=== PATIENT | female | born 1985 | race African-American/Black ===

== ENCOUNTER 2019-04-14 23:25 | Emergency (ER) | payer SELFPAY ==
[~2019-04-14] VITALS: Ht 172.7 cm; Wt 102.1 kg
[~2019-04-14 23:25] MED LIST: NITROFURANTOIN100 M2 ORAL; ONDANSETRON ODT4 MG ORAL
[2019-04-14 23:56] LABS: APPEARANCE,URINE CLEAR; BILIRUBIN, URINE NEGATIVE (NEGATIVE); COLOR,URINE PALE YELLOW; GLUCOSE, URINE (UA) NEGATIVE (NEGATIVE); KETONES,URINE NEGATIVE (NEGATIVE); LEUKOCYTE ESTERASE ,URINE NEGATIVE (NEGATIVE); NITRITE,URINE NEGATIVE (NEGATIVE); PH,URINE 8 (4.5-8.0); PROTEIN,URINE NEGATIVE (NEGATIVE); UROBILINOGEN,URINE NORMAL MG/DL (0.0-1.0)
[2019-04-14] MEDS: HYDROcodone/Acetamin 5/325 tab ORAL ONE (23:58)
[2019-04-14 23:59] VITALS: BP 102/74
--- NOTE | 2019-04-15 00:30 | Emergency Room Report ---
History of Present Illness General Chief Complaint: Pain Source: Patient Present Illness HPI Is a 33-year-old female with no past medical history. She presents with chief complaint of right flank pain. Onset for the last for 5 days. She went to urgent care couple days ago and was placed on Cipro. Not getting better. Pain is to the right lower back. Nothing made it better. Nothing made it worse. Pain is 8 out of 10. No radiation. No hematuria. Allergies: Coded Allergies: No Known Allergies (Unverified , 04/08/13) Patient History Past Medical History: see triage record, old chart reviewed Past Surgical History: none Pertinent Family History: none Social History: Denies: smoking Last Menstrual Period: IUD Now: No Immunizations: other Reviewed Nursing Documentation: PMH: Agreed; PSxH: Agreed Nursing Documentation-PM Past Medical History: No Stated History Review of Systems Eye: Denies: eye pain, blurred vision ENT: Denies: ear pain, nose congestion, throat swelling Respiratory: Denies: cough, shortness of breath Cardiovascular: Denies: chest pain, palpitations Gastrointestinal: Denies: abdominal pain, diarrhea, nausea, vomiting Musculoskeletal: Reports: back pain; Denies: joint pain Skin: Denies: rash Neurological: Denies: headache, numbness Endocrine: Denies: increased thirst, increased urine Hematologic/Lymphatic: Denies: easy bruising All Other Systems: negative except mentioned in HPI Physical Exam Vital Signs Date Time Temp Pulse Resp B/P (MAP) Pulse Ox O2 Delivery O2 Flow Rate FiO2 04/14/19 23:29 99.1 91 18 102/74 (83) 98 Room Air Vitals normal Sp02 EP Interpretation: reviewed, normal General Appearance: well appearing, no apparent distress, alert Head: normocephalic, atraumatic Eyes: bilateral eye PERRL, bilateral eye EOMI ENT: hearing grossly normal, normal pharynx Neck: full range of motion, supple, no meningismus Respiratory: chest non-tender, lungs clear, normal breath sounds Cardiovascular #1: regular rate, rhythm, no murmur Gastrointestinal: normal bowel sounds, non tender, no mass, no organomegaly, no bruit, non-distended Musculoskeletal: back normal, gait/station normal, normal range of motion Psychiatric: mood/affect normal Medical Decision Making Diagnostic Impression: Primary Impression: Back pain Qualified Codes: M54.5 - Low back pain ER Course Patient with lower back pain. No evidence of pyelonephritis or ureteral stone. She does have thickened bladder wall. She is finishing up a course of Cipro for UTI. I recommend outpatient follow-up for recheck. If continue with symptom, she may need referral to see urologist for biopsy to rule out bladder cancer. Patient pain well controlled now. Will discharge home. CT/MRI/US Diagnostic Results CT/MRI/US Diagnostic Results : Imaging Test Ordered: CT abdomen and pelvis Impression Read by radiologist. Thickened bladder wall. IUD. No kidney stone. Last Vital Signs Date Time Temp Pulse Resp B/P (MAP) Pulse Ox O2 Delivery O2 Flow Rate FiO2 04/14/19 23:59 99.1 18 102/74 98 Room Air 04/14/19 23:29 91 Status: improved Disposition: HOME, SELF-CARE Condition: Stable Scripts Ibuprofen* (MOTRIN*) 600 Mg Tablet 600 MG ORAL THREE TIMES A DAY, #30 TAB 0 Refills Prov: Buddy Pathak MD 04/15/19 Hydrocodone/Acetaminophen 5-325* (HYDROCODONE/ACETAMINOPHEN 5-325*) 1 Each Tablet 1 TAB ORAL Q6H PRN for For Pain, #10 TAB 0 Refills Prov: Buddy Pathak MD 04/15/19 Additional Instructions: Follow-up with your doctor in 7 days. Return if symptoms worsen. Buddy Pathak MD Apr 15, 2019 00:30
[2019-04-15] MEDS ORDERED: IBUPROFEN600 MG ORAL (01:05)
[2019-04-15] MEDS ORDERED: HYDROCODON-ACE1 EA15 ORAL (01:05)
[2019-04-15 01:16] VITALS: BP 102/74
--- NOTE | 2019-04-15 09:47 | Diagnostic Imaging Report ---
Indication: Abdominal pain for 3 days Technique: Spiral acquisitions obtained through the abdomen and pelvis. No oral contrast utilized, per emergency room physician request No IV contrast utilized, per referring physician request.. Multiplanar reconstructions were generated. Total dose length product 1009 mGycm. CTDIvol(s) 19 mGy. Dose reduction achieved using automated exposure control Comparison: None Findings: The appendix is normal. Prominent feces are seen in the distal sigmoid and rectum. No evidence of diverticulosis or diverticulitis. No small bowel distention. There is a tiny fat-containing umbilical hernia. Distal esophagus, stomach, duodenum are unremarkable. No free or loculated intraperitoneal gas or fluid is evident. Lack of IV contrast limits assessment of solid organs. The liver, gallbladder, bile ducts, pancreas, spleen, adrenals, kidneys are grossly unremarkable. No retroperitoneal or mesenteric mass or adenopathy. No pelvic mass or adenopathy. There is apparent bladder wall thickening, possibly an artifact of under distention. There is an intrauterine device in place. Uterus and ovaries are otherwise unremarkable. The lung bases are clear. The bones are unremarkable. Impression: Prominent distal colonic feces, could indicate constipation. Correlate with clinical findings Bladder wall thickening, possibly an artifact of under distention but the possibility of cystitis should be considered. Correlate with clinical and laboratory findings Intrauterine device noted Incidental finding tiny fat-containing umbilical hernia This agrees with the preliminary interpretation provided overnight by [facility]. The CT scanner at [facility] is accredited by the [employer] and the scans are performed using protocols designed to limit radiation exposure to as low as reasonably achievable to attain images of sufficient resolution adequate for diagnostic evaluation.
== END 2019-04-15 01:17 | disposition home or self-care (01) ==
LOC: EMR 04-15 00:45
DX: M54.5 Low back pain (principal); K42.9 Umbilical hernia without obstruction or gangrene; Z97.5 Presence of (intrauterine) contraceptive device
CPT/HCPCS: 74176; 81003; 81025; 99284

== ENCOUNTER → 2019-07-07 | Emergency (ER) | payer MEDICAID, OTHER ==
[~2019-07-07] VITALS: Ht 172.7 cm; Wt 113.4 kg
[~2019-07-07] MED LIST changes: +HYDROCODON-ACE1 EA15 ORAL; +IBUPROFEN600 MG ORAL; +NKM
--- NOTE | 2019-07-07 20:10 | NUR ---
ED Nurse Note: Recieved pt from home, here with c/o feeling like something crawling in right ear, denies fevers, cough, or any toehr complaints or discomforts.
--- NOTE | 2019-07-07 20:24 | Emergency Room Report ---
History of Present Illness General Chief Complaint: Earache Source: Patient Present Illness HPI 33-year-old female percents with foreign body sensation in right ear, prior to arrival, patient has been picking at something, patient has no foreign body sensation at the moment, no aggravating or relieving factors severity is mild, symptoms have since resolved patient want to make sure there is nothing in the ear. Patient presents for evaluation Allergies: Coded Allergies: No Known Allergies (Unverified , 04/08/13) Patient History Past Medical History: see triage record Last Menstrual Period: 06/19/19 Now: No Reviewed Nursing Documentation: PMH: Agreed; PSxH: Agreed Nursing Documentation-PMH Past Medical History: No Stated History Review of Systems All Other Systems: negative except mentioned in HPI Physical Exam Vital Signs Date Time Temp Pulse Resp B/P (MAP) Pulse Ox O2 Delivery O2 Flow Rate FiO2 07/07/19 20:02 98.1 92 16 103/74 (84) 100 Room Air General Appearance: well appearing, no apparent distress Head: normocephalic, atraumatic Eyes: bilateral eye PERRL, bilateral eye EOMI ENT: hearing grossly normal, normal voice, TMs + canals normal, moist mucus membranes Neck: full range of motion, supple Respiratory: no respiratory distress, speaking full sentences Neurologic: alert, normal gait Psychiatric: mood/affect normal Skin: no rash Medical Decision Making Diagnostic Impression: Primary Impression: Foreign body sensation in right ear canal ER Course 33 year-old female presents with foreign body sensation, no evidence of anything in the right ear TMs clear, canals normal Dispo home w/ return precautions Last Vital Signs Date Time Temp Pulse Resp B/P (MAP) Pulse Ox O2 Delivery O2 Flow Rate FiO2 07/07/19 20:02 98.1 92 16 103/74 (84) 100 Room Air Disposition: HOME, SELF-CARE Condition: Stable [facility] Patient Instructions: Earache Additional Instructions: The patient was provided with discharge instructions, notified to follow-up with a primary care doctor and or specialist in the next 24-48 hours, and to return to the ED if they have worsening of their symptoms. Please note that this report is being documented using [employer] technology. This can lead to erroneous entry secondary to incorrect interpretation by the dictating instrument. PLEASE UTILIZE DEBROX TO CLEAN OUT RIGHT EAR IF NEEDED Hilario Mujica MD Jul 07, 2019 20:24
[2019-07-07 21:00] VITALS: BP 103/74
--- NOTE | 2019-07-07 21:00 | NUR ---
ER DISCHARGE NOTE: Patient is cleared to be discharged per ERMD, pt is aox4, on room air, with stable vital signs. pt was given dc and prescription instructions, pt was able to verbalize understanding, pt id band removed without complications. pt is able to ambulate with steady gait. pt took all belongings.
== END | disposition home or self-care (01) ==
LOC: EMR 22:50
DX: H92.01 Otalgia, right ear (principal)
CPT/HCPCS: 99282

== ENCOUNTER 2020-03-23 22:36 | Emergency (ER) | payer MEDICAID, OTHER ==
[~2020-03-23] VITALS: Ht 170.2 cm; Wt 105.7 kg
[2020-03-23 22:47] VITALS: BP 112/68
--- NOTE | 2020-03-23 22:47 | NUR ---
ED Nurse Note: pt presents to ED c/o R eye px X 3 days, states she woke up with a swollen R eye. pt reports clear drainage from eye, it is red and painful
[2020-03-23] MEDS ORDERED: ERYTHROMYCIN3.5 GM RIGHT EYE (22:54)
[2020-03-23] MEDS ORDERED: AUGMENTIN 875-1 EAC1 ORAL (22:54)
--- NOTE | 2020-03-23 22:55 | Emergency Room Report ---
History of Present Illness General Chief Complaint: Eye Problems Source: Patient Present Illness HPI This a 34-year-old female with no past medical history. She will presents with chief complaint of right eyelid swelling. Onset for 3 days. Initially she woke up by her upper right eyelid were all swollen. Now there is a mass and localized swelling and mild redness. No fever chills. No trauma. Does not wear contacts. Denies any other complaint. No eyeball pain. Allergies: Coded Allergies: No Known Allergies (Unverified , 04/08/13) COVID-19 Screening Contact w/high risk pt: No Recent Travel to affected area: No Experienced COVID-19 symptoms?: No COVID-19 Testing performed BLOOD DONOR RECRUITER: No Patient History Past Medical History: see triage record, old chart reviewed Past Surgical History: none Pertinent Family History: none Social History: Denies: smoking Last Menstrual Period: 02/2020 Now: No Immunizations: other Reviewed Nursing Documentation: PMH: Agreed; PSxH: Agreed Nursing Documentation-PMH Past Medical History: No Stated History Review of Systems Eye: Denies: eye pain, blurred vision ENT: Denies: ear pain, nose congestion, throat swelling Respiratory: Denies: cough, shortness of breath Cardiovascular: Denies: chest pain, palpitations Gastrointestinal: Denies: abdominal pain, diarrhea, nausea, vomiting Musculoskeletal: Denies: back pain, joint pain Skin: Denies: rash Neurological: Denies: headache, numbness Endocrine: Denies: increased thirst, increased urine Hematologic/Lymphatic: Denies: easy bruising All Other Systems: negative except mentioned in HPI Physical Exam Vital Signs Date Time Temp Pulse Resp B/P (MAP) Pulse Ox O2 Delivery O2 Flow Rate FiO2 03/23/20 22:39 98.1 75 16 100/61 (74) 98 Room Air Vitals normal Sp02 EP Interpretation: reviewed, normal General Appearance: well appearing, no apparent distress, alert Head: normocephalic, atraumatic Eyes: right eye other - Right upper eyelid with a stye and local edema and mild redness. No discharge.; bilateral eye PERRL, bilateral eye EOMI ENT: hearing grossly normal, normal pharynx Neck: full range of motion, supple, no meningismus Respiratory: chest non-tender, lungs clear, normal breath sounds Cardiovascular #1: regular rate, rhythm, no murmur Gastrointestinal: normal bowel sounds, non tender, no mass, no organomegaly, no bruit, non-distended Musculoskeletal: back normal, normal range of motion, gait/station normal Psychiatric: mood/affect normal Medical Decision Making Diagnostic Impression: Primary Impression: Hordeolum externum of right upper eyelid ER Course Patient presents with stye. No evidence of corneal abrasion. No foreign body. Last Vital Signs Date Time Temp Pulse Resp B/P (MAP) Pulse Ox O2 Delivery O2 Flow Rate FiO2 03/23/20 22:39 98.1 75 16 100/61 (74) 98 Room Air Status: unchanged Disposition: HOME, SELF-CARE Condition: Stable Scripts Erythromycin Base (ERYTHROMYCIN*) 3.5 Gm Oint...g. 1 APPLIC RIGHT EYE QID, #3.5 GM 0 Refills Prov: Buddy Pathak MD 03/23/20 Amoxicillin/Potassium Clav 875-125* (AUGMENTIN 875-125 TABLET*) 1 Each Tablet 1 TAB ORAL TWICE A DAY, #14 TAB Prov: Buddy Pathak MD 03/23/20 Additional Instructions: Warm compress to the area. May clean with shampoo. Follow-up with your doctor in a week. If not better, you will need referral to see an city planning teacher. Return if worse. Buddy Pathak MD Mar 23, 2020 22:55
[2020-03-23 23:00] VITALS: BP 112/68
[2020-03-23] MEDS ORDERED: Augmentin 875mg Tab ORAL ONE (23:00)
== END 2020-03-23 23:00 | disposition home or self-care (01) ==
LOC: EMR 23:00
DX: H00.011 Hordeolum externum right upper eyelid (principal)
CPT/HCPCS: 99282